=== PATIENT | female | born 1990 | race American Indian/Alaskan Native ===

== ENCOUNTER 2018-04-15 13:42 | Emergency (ER) | payer MEDICAID ==
--- NOTE | 2018-04-15 14:15 | Emergency Department Report ---
Chief Complaint: Abdominal Pain Stated Complaint: ABD PAIN/VOMIT - HPI History of Present Illness: LIMITED EXAM R SIDE AND SUPRAPUBIC PAIN LMP MID MANSI NO HOME PREG TEST VSS AMBULATORY MSE COMPLETED MSE screening note: Focused history and physical exam performed. Due to findings the following was ordered: ED Disposition for MSE Condition: Stable Instructions: Abdominal Pain (ED)
[2018-04-15 14:50] LABS: Bilirubin,Urine NEG (Negative); Blood,Urine NEG (Negative); Color,Urine Yellow (Yellow); Mucus,Urine 3+ /HPF
[2018-04-15 14:51] LABS: HCG Qualitative,Urine Positive (Negative)
[2018-04-15 15:29] LABS: Basophils % (Auto) 0.2 % (0.0-1.8); Eosinophils % (Auto) 0.6 % (0.0-4.3); Hematocrit 34.3 % (30.3-42.9); Hemoglobin 11.1 gm/dl (10.1-14.3); Lymphocytes # (Auto) 2.9 K/mm3 (1.2-5.4); Mean Corpuscular HGB Conc 32 % (30-34); Monocytes # (Auto) 0.5 K/mm3 (0.0-0.8); Monocytes % (Auto) 7.3 % (0.0-7.3); Platelet Count 261 K/mm3 (140-440); Red Blood Count 5.26 M/mm3 (3.65-5.03); Red Cell Distribution Width 17.9 % (13.2-15.2)
[2018-04-15 15:30] LABS: Mean Corpuscular Volume 65 fl (79-97)
[2018-04-15] MEDS ORDERED: ZOFRAN ODT PO ONE (15:36)
[2018-04-15 15:38] LABS: BUN/Creatinine Ratio 10; Blood Urea Nitrogen 8 mg/dL (7-17); Calcium 8.8 mg/dL (8.4-10.2); Hemolysis Index 0
--- NOTE | 2018-04-15 15:38 | Emergency Department Report ---
ED Abdominal Pain HPI - General Chief Complaint: Abdominal Pain Stated Complaint: ABD PAIN/VOMIT Time Seen by Provider: 04/15/18 14:12 Source: patient Mode of arrival: Ambulatory Limitations: No Limitations - History of Present Illness Initial Comments: This is a 28-year-old female here report that she is having right abdominal pain and lower abdominal pain, nausea vomiting and diarrhea. She states that she took Aleve and pain was reduced. She said it started 1 day ago. Her last menstrual period was 03/10/2018. Pain is 7 out of 10 to her right lower abdomen and pelvic area and also to suprapubic area. She denies any urinary burning, frequency or urgency. Denies any back pain. Denies any vaginal bleeding or discharge. Denies any fever or chills. She took Aleve which she said helped the pain. No exacerbating factor. MD Complaint: abdominal pain, other (nausea vomiting) Onset/Timin -: days(s) Location: epigastric Radiation: none Migration to: no migration Severity: severe Severity scale (0 -10): 7 Quality: cramping Consistency: intermittent Improves With: medication Worsens With: nothing Context: other (possible ) Associated Symptoms: nausea, vomiting. denies: diarrhea, fever, chills, constipation, dysuria, hematemesis, hematochezia, melena, hematuria, anorexia, s yncope - Related Data LMP Date: 03/10/18 Previous Rx's Medication Instructions Recorded Last Taken Type Ondansetron [Zofran Odt] 4 mg PO Q8HR PRN #12 tab.rapdis 04/15/18 Unknown Rx Vit-Fe Fumar-FA [ 1 tab PO QDAY #30 tablet 04/15/18 Unknown Rx Vitamin] cephALEXin [Keflex] 500 mg PO Q12H 7 Days #14 cap 04/15/18 Unknown Rx Allergies Allergy/AdvReac Type Severity Reaction Status Date / Time No Known Allergies Allergy Unverified 04/15/18 13:54 ED Review of Systems ROS: Stated complaint: ABD PAIN/VOMIT Other details as noted in HPI Constitutional: denies: chills, fever ENT: denies: throat pain, congestion Respiratory: denies: cough, shortness of breath, wheezing Cardiovascular: denies: chest pain, palpitations, edema, syncope Gastrointestinal: abdominal pain, nausea, vomiting. denies: diarrhea, constipation, hematemesis, melena, hematochezia Genitourinary: denies: urgency, dysuria, frequency, hematuria, discharge, abnormal menses, dyspareunia Musculoskeletal: denies: back pain, joint swelling, arthralgia, myalgia Neurological: denies: headache ED Past Medical Hx - Past Medical History Previous Medical History?: No - Surgical History Past Surgical History?: No - Family History Family history: hypertension - Social History Smoking Status: Never Smoker Substance Use Type: None - Medications Home Medications: Home Medications Medication Instructions Recorded Confirmed Last Taken Type Ondansetron [Zofran Odt] 4 mg PO Q8HR PRN #12 tab.rapdis 04/15/18 Unknown Rx Vit-Fe Fumar-FA [ 1 tab PO QDAY #30 tablet 04/15/18 Unknown Rx Vitamin] cephALEXin [Keflex] 500 mg PO Q12H 7 Days #14 cap 04/15/18 Unknown Rx ED Physical Exam - General Limitations: No Limitations General appearance: alert, in no apparent distress - Head Head exam: Present: atraumatic, normocephalic - Eye Eye exam: Present: normal appearance, PERRL, EOMI Pupils: Present: normal accommodation - ENT ENT exam: Present: normal exam, normal orophraynx, mucous membranes moist - Neck Neck exam: Present: normal inspection, full ROM. Absent: tenderness, lymphadenopathy - Respiratory Respiratory exam: Present: normal lung sounds bilaterally. Absent: respiratory distress, chest wall tenderness - Cardiovascular Cardiovascular Exam: Present: normal rhythm, tachycardia, normal heart sounds - GI/Abdominal GI/Abdominal exam: Present: soft, tenderness (mild tenderness to suprapubic area), normal bowel sounds. Absent: distended, guarding, rebound, rigid, organomegaly, mass - Extremities Exam Extremities exam: Present: normal inspection, full ROM, normal capillary refill, other (No cce. + 2 pulses in all extremities, no neurovascular compromise). Absent: tenderness, pedal edema, joint swelling, calf tenderness - Back Exam Back exam: Present: normal inspection, full ROM, other (ambulates without any difficulties). Absent: tenderness, CVA tenderness (R), CVA tenderness (L), mus brit spasm, paraspinal tenderness, vertebral tenderness, rash noted - Neurological Exam Neurological exam: Present: alert, oriented X3, normal gait - Psychiatric Psychiatric exam: Present: normal affect, normal mood - Skin Skin exam: Present: warm, dry, intact, normal color. Absent: rash ED Course Vital Signs 04/15/18 14:23 Temperature 98 F Pulse Rate 108 H Respiratory 18 Rate Blood Pressure 134/80 O2 Sat by Pulse 100 Oximetry Vital Signs 04/15/18 04/15/18 04/15/18 14:23 20:16 20:20 Temperature 98 F Pulse Rate 108 H 92 H Respiratory 18 18 18 Rate Blood Pressure 134/80 Blood Pressure 130/76 [Left] O2 Sat by Pulse 100 100 Oximetry - Reevaluation(s) Reevaluation #1: 04/15/18 20:12 Patient received Zofran 4 mg ODT for relief of nausea. She is able to tolerate oral fluids in the emergency room ED Medical Decision Making - Lab Data Result diagrams: 04/15/18 15:01 04/15/18 15:01 Lab Results 04/15/18 04/15/18 04/15/18 Range/Units 14:33 15:01 15:01 WBC 7.3 (4.5-11.0) K/mm3 RBC 5.26 H (3.65-5.03) M/mm3 Hgb 11.1 (10.1-14.3) gm/dl Hct 34.3 (30.3-42.9) % MCV 65 L (79-97) fl MCH 21 L (28-32) pg MCHC 32 (30-34) % RDW 17.9 H (13.2-15.2) % Plt Count 261 (140-440) K/mm3 Lymph % (Auto) 40.0 H (13.4-35.0) % [place] % (Auto) 7.3 (0.0-7.3) % Eos % (Auto) 0.6 (0.0-4.3) % Baso % (Auto) 0.2 (0.0-1.8) % Lymph # 2.9 (1.2-5.4) K/mm3 [place] # 0.5 (0.0-0.8) K/mm3 Eos # 0.0 (0.0-0.4) K/mm3 Baso # 0.0 (0.0-0.1) K/mm3 Seg Neutrophils % 51.9 (40.0-70.0) % Seg Neutrophils # 3.8 (1.8-7.7) K/mm3 Sodium 139 (137-145) mmol/L Potassium 3.9 (3.6-5.0) mmol/L Chloride 103.1 (98-107) mmol/L Carbon Dioxide 25 (22-30) mmol/L Anion Gap 15 mmol/L BUN 8 (7-17) mg/dL Creatinine 0.8 (0.7-1.2) mg/dL Estimated GFR > 60 ml/min BUN/Creatinine Ratio 10 % Glucose 124 H (65-100) mg/dL Calcium 8.8 (8.4-10.2) mg/dL HCG, Quant (0-4) mIU/mL Urine Color Yellow (Yellow) Urine Turbidity Clear (Clear) Urine pH 6.0 (5.0-7.0) Ur Specific [place] 1.030 (1.003-1.030) Urine Protein 100 mg/dl (Negative) mg/dL Urine Glucose (UA) Neg (Negative) mg/dL Urine Ketones Neg (Negative) mg/dL Urine Blood Neg (Negative) Urine Nitrite Neg (Negative) Urine Bilirubin Neg (Negative) Urine Urobilinogen 4.0 (<2.0) mg/dL Ur Leukocyte Esterase Sm (Negative) Urine WBC (Auto) 27.0 H (0.0-6.0) /HPF Urine RBC (Auto) 5.0 (0.0-6.0) /HPF U Epithel Cells (Auto) 3.0 (0-13.0) /HPF Urine Mucus 3+ /HPF Urine HCG, Qual Positive A (Negative) 04/15/18 Range/Units 15:20 WBC (4.5-11.0) K/mm3 RBC (3.65-5.03) M/mm3 Hgb (10.1-14.3) gm/dl Hct (30.3-42.9) % MCV (79-97) fl MCH (28-32) pg MCHC (30-34) % RDW (13.2-15.2) % Plt Count (140-440) K/mm3 Lymph % (Auto) (13.4-35.0) % [place] % (Auto) (0.0-7.3) % Eos % (Auto) (0.0-4.3) % Baso % (Auto) (0.0-1.8) % Lymph # (1.2-5.4) K/mm3 [place] # (0.0-0.8) K/mm3 Eos # (0.0-0.4) K/mm3 Baso # (0.0-0.1) K/mm3 Seg Neutrophils % (40.0-70.0) % Seg Neutrophils # (1.8-7.7) K/mm3 Sodium (137-145) mmol/L Potassium (3.6-5.0) mmol/L Chloride (98-107) mmol/L Carbon Dioxide (22-30) mmol/L Anion Gap mmol/L BUN (7-17) mg/dL Creatinine (0.7-1.2) mg/dL Estimated GFR ml/min BUN/Creatinine Ratio % Glucose (65-100) mg/dL Calcium (8.4-10.2) mg/dL HCG, Quant 929.8 H (0-4) mIU/mL Urine Color (Yellow) Urine Turbidity (Clear) Urine pH (5.0-7.0) Ur Specific [place] (1.003-1.030) Urine Protein (Negative) mg/dL Urine Glucose (UA) (Negative) mg/dL Urine Ketones (Negative) mg/dL Urine Blood (Negative) Urine Nitrite (Negative) Urine Bilirubin (Negative) Urine Urobilinogen (<2.0) mg/dL Ur Leukocyte Esterase (Negative) Urine WBC (Auto) (0.0-6.0) /HPF Urine RBC (Auto) (0.0-6.0) /HPF U Epithel Cells (Auto) (0-13.0) /HPF Urine Mucus /HPF Urine HCG, Qual (Negative) - Radiology Data Radiology results: report reviewed Ultrasound OB transvaginal and transabdominal dictated by radiologist and report reviewed by myself. Please see details below Findings [facility] [address] [place] [address] Ultrasound Report Signed Patient: ALIS ABRAMS MR#: [id number] : 1990 Acct:[id number] Age/Sex: 28 / F ADM Date: 04/15/18 Loc: ED Attending Dr: Ordering Physician: ABHI ROWE Date of Service: 04/15/18 Procedure(s): US OB transvaginal Accession Number(s): [id number] cc: ABHI ROWE FINAL REPORT EXAM: US OB TRANSVAGINAL HISTORY: with pelvic cramps TECHNIQUE: Ultrasound obstetrical transvaginal PRIORS: None. FINDINGS: Uterus measures 9.3 x 5.3 x 6.1 centimeters. Endometrial thickness 1.3 centimeters. No gestational sac identified the uterus at this time. Noted is a 2.6 centimeter fibroid at the body of the uterus. Right ovary is 3.7 x 2 1 x 2.3 centimeters. There is a minimally complex right ovarian cyst 1.8 centimeters. Left ovary is 2.7 x 1.5 x 1.5 centimeters. No abnormal mass or cyst identified. No abnormal adnexal mass identified IMPRESSION: No gestational sac identified within the uterus at this time. May reflect very early gestation and continued followup recommended Transcribed By: Eleazar Dictated By: NIRU FINNEGAN MD Electronically Authenticated By: NIRU FINNEGAN MD Signed Date/Time: 04/15/182001 DD/ 00 TD/TT: 04/15/182000 Findings [facility] [address] [place] [address] Ultrasound Report Signed Patient: ALIS ABRAMS MR#: [id number] : 1990 Acct:[id number] Age/Sex: 28 / F ADM Date: 04/15/18 Loc: ED Attending Dr: Ordering Physician: ABHI ROWE Date of Service: 04/15/18 Procedure(s): US OB <= 14 weeks fetus Accession Number(s): [id number] cc: ABHI ROWE FINAL REPORT EXAM: US OB lt; = 14 WEEKS FETUS HISTORY: with pelvic cramps TECHNIQUE: Ultrasound pelvis transabdominal PRIORS: None. FINDINGS: Uterus measures 9.3 x 5.3 x 6.1 centimeters. Endometrial thickness 1.3 centimeters. No gestational sac identified the uterus at this time. Noted is a 2.6 centimeter fibroid at the body of the uterus. Right ovary is 3.7 x 2 1 x 2.3 centimeters. There is a minimally complex right ovarian cyst 1.8 centimeters. Left ovary is 2.7 x 1.5 x 1.5 centimeters. No abnormal mass or cyst identified. No abnormal adnexal mass identified IMPRESSION: No gestational sac identified within the uterus at this time. May reflect very early gestation and continued followup recommended Transcribed By: SUJIT Dictated By: NIRU FINNEGAN MD Electronically Authenticated By: NIRU FINNEGAN MD Signed Date/Time: 04/15/181999 DD/ 58 TD/TT: 04/15/181958 - Medical Decision Making This is a 28-year-old female here for abdominal pain to her pelvic area since yesterday with some nausea and vomiting in. Last menstrual period was 03/10/2018. Ultrasound transabdominal and transvaginal OB done and show probably early gestational. Her hormone and urine was positive. Patient also has a small urinary tract infection and urine cultures were sent. Results discussed with patient. She voiced understanding that she needs to follow up with [facility] in 3 days for repeat hormone tests or she cannot get in with [facility] to return to the emergency room. Patient is stable and in no acute distress. She received Tylenol 500 mg by mouth for pain while in the emergency room and Zofran 4 mg ODT for nausea. Discharged home in stable condition in no acute distress. Patient given prescription for Zofran, vitamin and Keflex - Differential Diagnosis ectopic , early IUP, UTI, enteritis Critical care attestation.: If time is entered above; I have spent that time in minutes in the direct care of this critically ill patient, excluding procedure time. ED Disposition Clinical Impression: Fibroid, Positive blood test Abdominal pain during Qualifiers: Trimester: first trimester Qualified Code(s): O26.891 - Other specified related conditions, first trimester; R10.9 - Unspecified abdominal pain Ovarian cyst Qualifiers: Laterality: right Qualified Code(s): N83.201 - Unspecified ovarian cyst, right side Acute cystitis during Qualifiers: Trimester: first trimester Qualified Code(s): O23.11 - Infections of bladder in , first trimester Disposition: DC-01 TO HOME OR SELFCARE Is pt being admited?: No Does the pt Need Aspirin: No Condition: Stable Instructions: (ED), Abdominal Pain in (ED), Urinary Tract Infection in Women (ED), Ovarian Cyst (ED), Uterine Fibroids (ED) Additional Instructions: Please follow up with [facility] in 3 days for repeat hormone tests. Your ultrasound is showing that you have no gestational sac and radiology thinks is because his early you will need to follow up at [facility]. If she cannot get in with [facility] you can return to the emergency room in 3 days to have test done. Take Keflex for urinary tract infection Please not take any Aleve or nonsteroidal anti-inflammatory drugs as these are not good in can take Tylenol if she has pain If you develop vaginal bleeding, fever or chills, nausea and vomiting that is worsening, please return to the emergency room otherwise schedule appointment with [facility] on your discharge instruction paperwork and follow-up for care Referrals: [facility] [Primary Care Provider] - 04/18/18 [facility] [Provider Group] - 04/18/18 Forms: Work/School Release Form(ED)
--- NOTE | 2018-04-15 20:00 | Ultrasound Report ---
FINAL REPORT EXAM: US OB < = 14 WEEKS FETUS HISTORY: with pelvic cramps TECHNIQUE: Ultrasound pelvis transabdominal PRIORS: None. FINDINGS: Uterus measures 9.3 x 5.3 x 6.1 centimeters. Endometrial thickness 1.3 centimeters. No gestational sa c identified the uterus at this time. Noted is a 2.6 centimeter fibroid at the body of the uterus. Right ovary is 3.7 x 2 1 x 2.3 centimeters. There is a minimally complex right ovarian cyst 1.8 centi meters. Left ovary is 2.7 x 1.5 x 1.5 centimeters. No abnormal mass or cyst identified. No abnormal adnexal m ass identified IMPRESSION: No gestational sac identified within the uterus at this time. May reflect very early gestation and co ntinued followup recommended
--- NOTE | 2018-04-15 20:02 | Ultrasound Report ---
FINAL REPORT EXAM: US OB TRANSVAGINAL HISTORY: with pelvic cramps TECHNIQUE: Ultrasound obstetrical transvaginal PRIORS: None. FINDINGS: Uterus measures 9.3 x 5.3 x 6.1 centimeters. Endometrial thickness 1.3 centimeters. No gestational sa c identified the uterus at this time. Noted is a 2.6 centimeter fibroid at the body of the uterus. Right ovary is 3.7 x 2 1 x 2.3 centimeters. There is a minimally complex right ovarian cyst 1.8 centi meters. Left ovary is 2.7 x 1.5 x 1.5 centimeters. No abnormal mass or cyst identified. No abnormal adnexal m ass identified IMPRESSION: No gestational sac identified within the uterus at this time. May reflect very early gestation and co ntinued followup recommended
[2018-04-15 20:17] VITALS: BP 130/76
[2018-04-15] MEDS ORDERED: TYLENOL PO ONE (20:19)
[2018-04-15] MEDS ORDERED: TYLENOL ONE (20:20)
== END 2018-04-15 20:58 | disposition home or self-care (01) ==
LOC: ED 13:42
DX: O34.81 Maternal care for other abnormalities of pelvic organs, first trimester (principal); N83.201 Unspecified ovarian cyst, right side; O23.41 Unspecified infection of urinary tract in pregnancy, first trimester; Z3A.11 11 weeks gestation of pregnancy
CPT/HCPCS: 36415; 76801; 76817; 80048; 81001; 81025; 84702; 85025; 87086; Q0162